=== PATIENT | female | born 1945 | race Caucasian/White ===

== ENCOUNTER 2021-05-29 16:58 | Inpatient (IN) | payer MEDICARE ==
[~2021-05-29] VITALS: Ht 162.6 cm; Wt 49.9 kg
[2021-05-29 17:57] LABS: BASOPHILS % 0.2 % (0.0-1.0); HEMATOCRIT 38.2 % (34.2-44.1); HEMOGLOBIN 11.8 g/dL (12.0-16.0); LYMPHOCYTES % 10.8 % (18.0-39.1); MEAN CORPUSCULAR HEMOGLOBIN 31.5 pg (28-32); MEAN CORPUSCULAR HGB CONC 30.9 g/dL (31-35); MEAN CORPUSCULAR VOLUME 101.9 fL (81-99); MONOCYTES # (AUTO) 0.3 (0.2-0.8); MONOCYTES % 3.4 % (4.4-11.3); NEUTROPHILS # (AUTO) 7.5 (2.1-6.9); PLATELET COUNT 140 x10e3/uL (140-360); RED BLOOD COUNT 3.75 x10e6/uL (3.6-5.1); RED CELL DISTRIBUTION WIDTH 18.4 % (11.7-14.4)
[2021-05-29 18:17] LABS: ALANINE AMINOTRANSFERASE 40 IU/L (0-55); ALBUMIN 2.3 g/dL (3.5-5.0); ALBUMIN/GLOBULIN RATIO 0.8 (0.8-2.0); ALKALINE PHOSPHATASE 201 IU/L (40-150); ANION GAP 17.1 mmol/L (8-16); BLOOD UREA NITROGEN 17 mg/dL (7-26); BUN/CREATININE RATIO 18 (6-25); CALCIUM 7.3 mg/dL (8.4-10.2); CARBON DIOXIDE 17 mmol/L (22-29); CHLORIDE 103 mmol/L (98-107); CREATINE KINASE 82 IU/L (29-168); CREATININE, SERUM 0.92 mg/dL (0.57-1.11); EST GLOMERULAR FILTRATION RATE 59 ML/MIN (60-); GLUCOSE 86 mg/dL (74-118); POTASSIUM 4.1 mmol/L (3.5-5.1); SODIUM 133 mmol/L (136-145)
[2021-05-29] MEDS ORDERED: SODIUM CHLORIDE 0.9% 500ML 500 ML ONE (18:42)
[2021-05-29] MEDS ORDERED: SODIUM CHLORIDE 0.9% 500ML 500 ML IV ONE (18:45)
[2021-05-29] MEDS ORDERED: FUROSEMIDE INJ 10 MG/ML 4 ML VIAL IV ONE (20:30)
[2021-05-29] MEDS ORDERED: NOREPINEPHRINE 8 MG/D5W 250 ML 250 ML IV SCH (20:45)
[2021-05-29] MEDS ORDERED: LOPERAMIDE1 MG/7.5 M (23:05)
[2021-05-29] MEDS ORDERED: ALPRAZOLAM0.5 MG PO (23:05)
[2021-05-29] MEDS ORDERED: ATORVASTATIN CA80 MG PO (23:05)
[2021-05-29] MEDS ORDERED: PROMETHAZINE HC25 M1 PO (23:05)
[2021-05-29] MEDS ORDERED: ASPIRIN81 MG PO (23:05)
[2021-05-29] MEDS ORDERED: CLOPIDOGREL75 MG PO (23:05)
[2021-05-29] MEDS ORDERED: POTASSIUM CHLO20 ME2 PO (23:05)
[2021-05-29] MEDS ORDERED: PANTOPRAZOLE SO20 MG PO (23:05)
[2021-05-29] MEDS ORDERED: LOSARTAN POTASS25 MG PO (23:05)
[2021-05-29] MEDS ORDERED: ULTRAM 50MG50 MG PO (23:05)
[2021-05-29] MEDS ORDERED: MELATONIN3 MG PO (23:05)
[2021-05-29] MEDS ORDERED: FUROSEMIDE40 MG PO (23:05)
[2021-05-29] MEDS ORDERED: METOPROLOL SUCC25 MG PO (23:05)
[2021-05-29] MEDS ORDERED: JARDIANCE10 MG PO (23:05)
[2021-05-30 05:39] LABS: BASOPHILS % 0.1 % (0.0-1.0); HEMATOCRIT 33.1 % (34.2-44.1); HEMOGLOBIN 10.6 g/dL (12.0-16.0); LYMPHOCYTES # (AUTO) 1.2 (1.0-3.2); LYMPHOCYTES % 13.3 % (18.0-39.1); MEAN CORPUSCULAR HEMOGLOBIN 31.5 pg (28-32); MEAN CORPUSCULAR VOLUME 98.2 fL (81-99); MONOCYTES # (AUTO) 0.3 (0.2-0.8); MONOCYTES % 3.2 % (4.4-11.3); NEUTROPHILS # (AUTO) 7.2 (2.1-6.9); NEUTROPHILS % 82.9 % (38.7-80.0); PLATELET COUNT 200 x10e3/uL (140-360); RED BLOOD COUNT 3.37 x10e6/uL (3.6-5.1); RED CELL DISTRIBUTION WIDTH 18.3 % (11.7-14.4)
[2021-05-30 06:00] LABS: ALBUMIN 2.1 g/dL (3.5-5.0); ALBUMIN/GLOBULIN RATIO 0.8 (0.8-2.0); ANION GAP 13.3 mmol/L (8-16); CALCIUM 7.1 mg/dL (8.4-10.2); CREATININE, SERUM 0.85 mg/dL (0.57-1.11); POTASSIUM 3.3 mmol/L (3.5-5.1)
[2021-05-30 08:53] LABS: ABG HCO3 24 mmol/L (22-26); ABG PCO2 42 mmHg (35-45); ABG PH 7.36 (7.35-7.45); ABG PO2 87 mmHg (80-105); ABG TCO2 25
[2021-05-30] MEDS ORDERED: ACETAMINOPHEN 325 MG SUPP PR PRN (11:00)
[2021-05-30] MEDS ORDERED: CEFTRIAXONE 2 GM in SODIUM CHLORIDE 0.9% 100 ML IV SCH (11:00)
[2021-05-30] MEDS ORDERED: FUROSEMIDE INJ 100 MG in SODIUM CHLORIDE 0.9% 100 ML 90 ML IV SCH (11:15)
[2021-05-30] MEDS ORDERED: ACETAMINOPHEN 650 MG SUPP PR ONE (11:40)
[2021-05-30] MEDS ORDERED: DEXAMETHASONE SOD PHOS 10 MG/1 ML VIAL IV SCH (11:45)
[2021-05-30] MEDS ORDERED: POTASSIUM CHLORIDE 20MEQ/100ML 200 ML IV ONE (11:45)
[2021-05-30] MEDS ORDERED: REMDESIVIR 200MG 200 MG in SODIUM CHLORIDE 0.9% 100 ML 100 ML IV ONE (12:00)
[2021-05-30] MEDS ORDERED: FUROSEMIDE INJ 10 MG/ML 4 ML VIAL IV ONE (13:00)
[2021-05-30 13:37] VITALS: BP 79/52
[2021-05-30] MEDS ORDERED: ENOXAPARIN 30 MG/0.3 ML SYR SC SCH (17:00)
[2021-05-30] MEDS ORDERED: ENOXAPARIN INJ 80 MG/0.8 ML SYR SC SCH (17:00)
[2021-05-30] MEDS ORDERED: ASCORBIC ACID 500 MG TAB PO SCH ×2 (17:00)
[2021-05-31] MEDS ORDERED: ZINC SULFATE 220 MG CAP PO SCH ×2 (09:00)
[2021-05-31] MEDS ORDERED: REMDESIVIR 100MG 100 MG in SODIUM CHLORIDE 0.9% 100 ML 100 ML IV SCH (14:00)
[2021-05-31] MEDS ORDERED: REMDESIVIR 100MG 100 MG in SODIUM CHLORIDE 0.9% 100 ML IV SCH (14:00)
== END 2021-05-30 15:03 | disposition hospice, home (50) | DRG 871 ==
LOC: ER 18:08 → ERHOLD 18:46
PROVIDERS: ADMIT Internal Medicine; ATTEND Internal Medicine
PROC: 02HV33Z Insertion of Infusion Device into Superior Vena Cava, Percutaneous Approach (ICD-10-PCS; principal; 2021-05-29)
PROC: 8E0ZXY6 Isolation (ICD-10-PCS; 2021-05-29)
DX: A41.9 Sepsis, unspecified organism (principal); U07.1 COVID-19; J12.82 Pneumonia due to coronavirus disease 2019; J96.01 Acute respiratory failure with hypoxia; I50.23 Acute on chronic systolic (congestive) heart failure; R65.21 Severe sepsis with septic shock; I42.8 Other cardiomyopathies; I13.0 Hypertensive heart and chronic kidney disease with heart failure and stage 1 through stage 4 chronic kidney disease, or unspecified chronic kidney disease; D64.9 Anemia, unspecified; I25.2 Old myocardial infarction; N18.30 Chronic kidney disease, stage 3 unspecified; Z66 Do not resuscitate; Z51.5 Encounter for palliative care; I25.10 Atherosclerotic heart disease of native coronary artery without angina pectoris; I48.91 Unspecified atrial fibrillation; Z79.01 Long term (current) use of anticoagulants; I11.0 Hypertensive heart disease with heart failure
CPT/HCPCS: 36415; 36569; 71045; 80053; 82550; 82553; 82805; 83880; 84484; 85025; 93005; 93306; 94660; 99285; J0456; J0696; J1100; J1940; J3480; J7040; J7050; U0002